=== PATIENT | female | born 1980 | race Caucasian/White ===

== ENCOUNTER 2016-11-23 06:18 | Outpatient (CLI) ==
--- NOTE | 2016-11-24 10:21 | ECHO2D ---
Date of Exam: 11/23/16 Ordering Physician: JESSICA SHAIKH Reason for Echo: HISTORY OF VSD REPAIR, HYPERTENSION, DYSLIPIDEMIA M-Mode Normal Adult Results LV Dimensions Normal Adult Results AoV Opening excursions >1.6 >1.6 LVEDD-base- 3.5-5.8 3.4 Ao root dimensions 2.0-3.7 2.8 LVESD-base- 3.1-4.6 L. Atrium dimensions 1.9-3.8 3.9 Post. Wall thickness 0.8-1.1 1.1 IV septum (thickness) 0.7-1.2 1.3 Post. Wall excursion 0.72-1.3 NORMAL Septal motion 0.7 Systolic motion R. Ventricular cavity 1.5-2.0 NORMAL LVEF 60% 58% Paradoxical septal wall motion NORMAL 2-D : MILDLY HYPOKINETIC SEPTUM, VALVES--NORMAL, NO EFFUSION, NO THROMBUS, NORMAL LEFT VENTRICLE AND LEFT ATRIAL SIZE M-MODE: MV: NORMAL AV: NORMAL TV: NORMAL PV: CHAMBER SIZE: NORMAL WALL MOTION: NORMAL PERICARDIUM: NORMAL INTERPRETATION: 1. MILDLY HYPOKINETIC SEPTUM (VSD REPAIR) 2. MILD LEFT VENTRICULAR HYPERTROPHY 3. LEFT VENTRICULAR EJECTION FRACTION 58% 4. VALVES NORMAL MTDD
== END 2016-11-23 06:19 | disposition home or self-care (01) ==
LOC: CAR 06:18
PROVIDERS: ATTEND Emergency Medicine
DX: E78.5 Hyperlipidemia, unspecified (principal); I10 Essential (primary) hypertension; Z87.74 Personal history of (corrected) congenital malformations of heart and circulatory system; I51.7 Cardiomegaly

== ENCOUNTER 2018-01-17 15:17 | Outpatient (CLI) ==
--- NOTE | 2018-01-17 15:55 | DI ---
EXAM: Three views of the left foot. History: Left heel pain. Findings: No acute fracture or dislocation. Seen best on the oblique view there is a subchondral cy st or erosion within the medial first metatarsal head measuring 6 mm. Also seen on the oblique view there is a 4 mm triangular radiodensity projecting within the soft tiss ues along the ventral aspect adjacent to the fourth metacarpal neck could indicate retained foreign b omar or possibly be on the patient's skin as this area is not clearly seen on the lateral view. Mild narrowing of the first MTP joint. Impression: 1. No acute osseous abnormality. 2. Erosion or subchondral cyst within the medial first metatarsal head. Correlate for possibility o f gout. 3. Concern for retained soft tissue foreign body adjacent to the fourth metacarpal neck.
== END 2018-01-17 15:18 | disposition home or self-care (01) ==
LOC: RAD 15:17
PROVIDERS: ATTEND Internal Medicine
DX: M79.672 Pain in left foot (principal)